=== PATIENT | male | born 1970 | race African-American/Black ===

== ENCOUNTER 2018-06-03 13:43 | Inpatient (IN) | payer OTHER ==
[2018-06-03 15:36] VITALS: BMI 25.1
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
[2018-06-03] MEDS ORDERED: ACETAMINOPHEN 325 MG TABLET (FP) PO PRN (17:13)
[2018-06-03] MEDS ORDERED: guaiFENesin/D-METHORPHAN HB 10 ML UNIT-DOSE CUPS PO PRN (17:13)
[2018-06-03] MEDS ORDERED: MENTHOL/PHENOL 1 EACH UD MM PRN (17:13)
[2018-06-03] MEDS ORDERED: LOPERAMIDE HCL 2 MG CAPSULE PO PRN (17:13)
[2018-06-03] MEDS ORDERED: MAGNESIUM CITRATE 300 ML BOTTLE PO PRN (17:13)
[2018-06-03] MEDS ORDERED: hydrOXYzine PAMOATE 50 MG CAPSULE (FP) PO PRN (17:13)
[2018-06-03] MEDS ORDERED: P-EPHED 60MG/TRIPROLIDI 2.5MG TABLET PO PRN (17:13)
[2018-06-03] MEDS ORDERED: MAG HYDROX/AL HYDROX/SIMETH 30 ML UNIT-DOSE CUP PO PRN (17:13)
[2018-06-03] MEDS ORDERED: MAGNESIUM HYDROX 2400MG/30ML ORAL SUSPENSION 30 ML CUP PO PRN (17:13)
[2018-06-03] MEDS ORDERED: IBUPROFEN 400 MG TABLET (FP) PO PRN (17:13)
[2018-06-03] MEDS ORDERED: TUBERCULIN PPD 5 TU/0.1ML VIAL ID ONE (21:02)
[2018-06-03] MEDS: THIAMINE HCL 100 MG TABLET (FP) PO SCH (21:33)
[2018-06-03] MEDS: BUPRENORPHINE/NALOXONE 8 MG/2 MG FILM PACKET SL SCH (21:33)
[2018-06-03] MEDS: HYDROCORTISONE 1% TOPICAL CREAM 30 GM TUBE TP SCH (21:36)
[2018-06-03] MEDS ORDERED: MELATONIN 5 MG TABLETS PO PRN (22:00)
[2018-06-04] MEDS ORDERED: PATIENT'S OWN MEDICATION (NON-FORMULARY) (Elviteg/Cob/Emtri/Tenof Alafen 1 EACH) PO SCH (10:00)
[2018-06-04 10:28] LABS: HEMATOCRIT 38.7 % (35.4-49); HEMOGLOBIN 12.3 GM/dL (11.7-16.9); MCH 27.5 pg (25.7-33.7); MCHC 31.8 g/dl (32.0-35.9); MEAN CELL VOLUME 86.5 fl (80-96); MEAN PLT VOLUME 7.9 fl (7.5-11.1); PLATELET COUNT 202 K/MM3 (134-434); RBC 4.47 M/mm3 (4.00-5.60); RDW 14.5 % (11.9-15.9); WHITE BLOOD COUNT 7.5 K/mm3 (4.0-10.0)
[2018-06-04] MEDS: PRENATAL VITAMINS W/ FOLIC ACID TABLET (FP) PO SCH (10:39)
[2018-06-04] MEDS: RAMIPRIL 5 MG CAPSULE (FP) PO SCH (10:39)
[2018-06-04] MEDS: HYDROCORTISONE 1% TOPICAL CREAM 30 GM TUBE TP SCH ×2 (10:40→21:53)
[2018-06-04] MEDS: BUPRENORPHINE/NALOXONE 8 MG/2 MG FILM PACKET SL SCH ×2 (10:41→21:52)
[2018-06-04 16:10] LABS: ALBUMIN 3.5 g/dl (3.4-5.0); ALK PHOS 83 U/L (45-117); ANION GAP 7 MMOL/L (8-16); BILIRUBIN,TOTAL 0.3 mg/dL (0.2-1); BLOOD UREA NITROGEN 15 mg/dL (7-18); CALCIUM 8.6 mg/dL (8.5-10.1); CHLORIDE 103 mmol/L (98-107); CO2 28 mmol/L (21-32); CREATININE 1.2 mg/dL (0.55-1.3); GLUCOSE,RANDOM 88 mg/dL (74-106); POTASSIUM 3.9 mmol/L (3.5-5.1); SGOT/AST 23 U/L (15-37); SGPT/ALT 39 U/L (13-61); SODIUM 139 mmol/L (136-145)
--- NOTE | 2018-06-04 18:10 | HP ---
Psychiatrist Admission - Data Date of interview: 06/04/18 Admission source: [facility]. Referred by [facility] Identifying data: First admission to [facility] for this [place]-born male, mandated by [facility] for rehabilitation treatment addressing cocaine (crack), cannabis, opioid and alcohol dependence. Patient is single, a father of two, domiciled, unemployed and supported on [employer] benefits. Medical History: Remarkable for HIV infection (non-compliant with ART medications), bronchial asthma, hypertension, dyslipidemia, antecedent of treatment for syphilis + gonorrhea and a history of orthosurgery for injuries to right knee from a fall (2006). Psychiatric History: Patient admits to one psychiatric hospitalization at a facility in [place] (name not recalled) and he indicates that it was " related to alcohol intoxication ". Diagnosed with MDD. Prescribed seroquel 200 mg/hs. Mr Taylor states that he sees a psychiatrist at an outpatient program, [facility], [facility]. Non-adherent to medications. Denies history of suicide attempts. Currently on suboxone maintenance. Physical/Sexual Abuse/Trauma History: Patient denies. Additional Comment: Substance abuse profile. As follows (from current [facility] report ) : Smoking history: Current every day smoker. Have you smoked in the past 12 months: Yes. Aproximately how many cigarettes per day: 6. Hx Chewing Tobacco Use: No. Initiated information on smoking cessation: Yes. 'Breaking Loose' booklet given: 06/03/18. - Substance & Tx. History. Substance Use Type: Cocaine ($100/day). Hx Substance Use Treatment: Yes ([facility] several years ago). - Substances Abused. Marijuana/Hashish. Route: Smoking. Frequency: Daily. Amount used: 10 joints. Age of first use: 16. Date of Last Use: . Cocaine. Route: Smoking. Frequency: Daily. Amount used: $100. Age of first use: 34. Date of Last Use: 05/31/18. Urine Drug Screen Results: THC- Marijuana. Noted. Vital Signs: Vital Signs - 24 hr 06/04/18 06/04/18 06/04/18 00:30 03:30 06:50 Temperature 98.2 F Pulse Rate 78 Respiratory 18 18 18 Rate Blood Pressure 133/94 Allergies/Adverse Reactions: Allergies Allergy/AdvReac Type Severity Reaction Status Date / Time No Known Allergies Allergy Verified 06/03/18 16:15 - Substance Abuse/Tx History Hx Alcohol Use: Yes (since age 16) Hx Substance Use: Yes (alcohol, cannabis, nicotine, crack; on suboxone maintenance) Substance Use Type: Alcohol (consumes 2X6 packs of beer + 2 pints of rum/vodka on a daily basis), Cocaine (spends 200 dollars/day on crack since age 34 (had stopped for a while and escalated in recent months ), Marijuana (spends 50 dollars/day ; started at age 16) Hx Substance Use Treatment: Yes Mental Status Exam - Mental Status Exam Alert and Oriented to: Time, Place, Person Cognitive Function: Good Patient Appearance: Well Groomed Mood: Nervous, Hopeful Affect: Appropriate, Normal Range Patient Behavior: Fatigued, Appropriate, Cooperative Speech Pattern: Clear Voice Loudness: Normal Thought Process: Goal Oriented Thought Disorder: Not Present Hallucinations: Denies Suicidal Ideation: Denies Homicidal Ideation: Denies Insight/Judgement: Fair Sleep: Poorly, Difficulty falling asleep Appetite: Good Muscle strength/Tone: Normal Gait/Station: Normal Psychiatric Findings - Problem List ([place] 1, 2,3) (1) Opioid dependence on agonist therapy Current Visit: Yes Status: Acute (2) Cannabis use disorder, mild, abuse Current Visit: Yes Status: Acute (3) Cocaine use disorder Current Visit: Yes Status: Acute (4) Nicotine dependence Current Visit: Yes Status: Acute (5) Insomnia Current Visit: Yes Status: Acute - Initial Treatment Plan Initial Treatment Plan: Psychoeducation. Sleep hygiene. Supportive/group therapy. NA/AA meetings. Motivational sessions. Patient agrees to resume seroquel but ONLY at the " smallest dose possible ". Seroquel 25 mg po hs. Ordered at patient's request. Side effects/benefits discussed in session. Observation.
[2018-06-04] MEDS ORDERED: PT OWN MED DRAWER 7, Y5N ONE (19:24)
[2018-06-04 21:24] LABS: URINE APPEARANCE CLOUDY; URINE BILIRUBIN NEGATIVE (<2.0 mg/dL); URINE COLOR LTYELLOW; URINE GLUCOSE (UA) NEGATIVE (NEGATIVE); URINE KETONE NEGATIVE (NEGATIVE); URINE LEUK ESTERASE NEGATIVE (NEGATIVE); URINE NITRITE NEGATIVE (NEGATIVE); URINE PROTEIN NEGATIVE (NEGATIVE); URINE UROBILINOGEN NEGATIVE mg/dL (0.2-1.0)
[2018-06-04] MEDS: THIAMINE HCL 100 MG TABLET (FP) PO SCH (21:51)
[2018-06-04] MEDS: QUEtiapine FUMARATE 25 MG TABLET (FP) PO SCH (21:52)
[2018-06-05] MEDS ORDERED: PT OWN MED DRAWER 7, Y5N ONE (08:54)
[2018-06-05] MEDS: RAMIPRIL 5 MG CAPSULE (FP) PO SCH (09:45)
[2018-06-05] MEDS: BUPRENORPHINE/NALOXONE 8 MG/2 MG FILM PACKET SL SCH ×2 (09:45→21:29)
[2018-06-05] MEDS: PRENATAL VITAMINS W/ FOLIC ACID TABLET (FP) PO SCH (09:45)
[2018-06-05] MEDS: HYDROCORTISONE 1% TOPICAL CREAM 30 GM TUBE TP SCH ×2 (09:45→21:27)
[2018-06-05] MEDS: NICOTINE POLACRILEX 4 MG GUM BC PRN ×2 (11:46→13:44)
[2018-06-05] MEDS: QUEtiapine FUMARATE 25 MG TABLET (FP) PO SCH (21:27)
[2018-06-05] MEDS: THIAMINE HCL 100 MG TABLET (FP) PO SCH (21:27)
[2018-06-06] MEDS: RAMIPRIL 5 MG CAPSULE (FP) PO SCH (09:46)
[2018-06-06] MEDS: BUPRENORPHINE/NALOXONE 8 MG/2 MG FILM PACKET SL SCH ×2 (09:46→21:22)
[2018-06-06] MEDS: PRENATAL VITAMINS W/ FOLIC ACID TABLET (FP) PO SCH (09:46)
[2018-06-06] MEDS: HYDROCORTISONE 1% TOPICAL CREAM 30 GM TUBE TP SCH ×3 (09:47→23:14)
[2018-06-06] MEDS: NICOTINE POLACRILEX 4 MG GUM BC PRN (13:53)
[2018-06-06] MEDS: THIAMINE HCL 100 MG TABLET (FP) PO SCH (21:22)
[2018-06-06] MEDS: QUEtiapine FUMARATE 25 MG TABLET (FP) PO SCH (21:22)
[2018-06-06] MEDS ORDERED: PT OWN MED DRAWER 7, Y5N ONE (23:14)
[2018-06-07] MEDS ORDERED: PT OWN MED DRAWER 7, Y5N ONE ×4 (09:15→22:09)
[2018-06-07] MEDS: RAMIPRIL 5 MG CAPSULE (FP) PO SCH (10:34)
[2018-06-07] MEDS: PRENATAL VITAMINS W/ FOLIC ACID TABLET (FP) PO SCH (10:34)
[2018-06-07] MEDS: BUPRENORPHINE/NALOXONE 8 MG/2 MG FILM PACKET SL SCH ×2 (10:36→21:49)
[2018-06-07] MEDS: HYDROCORTISONE 1% TOPICAL CREAM 30 GM TUBE TP SCH ×2 (10:36→21:50)
[2018-06-07] MEDS: THIAMINE HCL 100 MG TABLET (FP) PO SCH (21:49)
[2018-06-07] MEDS: QUEtiapine FUMARATE 25 MG TABLET (FP) PO SCH (21:49)
[2018-06-08] MEDS: HYDROCORTISONE 1% TOPICAL CREAM 30 GM TUBE TP SCH ×2 (09:47→21:20)
[2018-06-08] MEDS: RAMIPRIL 5 MG CAPSULE (FP) PO SCH (09:47)
[2018-06-08] MEDS: BUPRENORPHINE/NALOXONE 8 MG/2 MG FILM PACKET SL SCH ×2 (09:47→21:18)
[2018-06-08] MEDS: PRENATAL VITAMINS W/ FOLIC ACID TABLET (FP) PO SCH (09:47)
[2018-06-08] MEDS: NICOTINE POLACRILEX 4 MG GUM BC PRN (14:47)
[2018-06-08] MEDS: THIAMINE HCL 100 MG TABLET (FP) PO SCH (21:18)
[2018-06-08] MEDS: QUEtiapine FUMARATE 25 MG TABLET (FP) PO SCH (21:18)
[2018-06-09] MEDS: RAMIPRIL 5 MG CAPSULE (FP) PO SCH (10:05)
[2018-06-09] MEDS: PRENATAL VITAMINS W/ FOLIC ACID TABLET (FP) PO SCH (10:05)
[2018-06-09] MEDS: BUPRENORPHINE/NALOXONE 8 MG/2 MG FILM PACKET SL SCH ×2 (10:05→21:11)
[2018-06-09] MEDS: NICOTINE POLACRILEX 4 MG GUM BC PRN ×2 (10:06→21:29)
[2018-06-09] MEDS: HYDROCORTISONE 1% TOPICAL CREAM 30 GM TUBE TP SCH ×2 (10:06→21:13)
[2018-06-09] MEDS: THIAMINE HCL 100 MG TABLET (FP) PO SCH (21:11)
[2018-06-09] MEDS: QUEtiapine FUMARATE 25 MG TABLET (FP) PO SCH (21:11)
[2018-06-10] MEDS: RAMIPRIL 5 MG CAPSULE (FP) PO SCH (10:09)
[2018-06-10] MEDS: PRENATAL VITAMINS W/ FOLIC ACID TABLET (FP) PO SCH (10:09)
[2018-06-10] MEDS: HYDROCORTISONE 1% TOPICAL CREAM 30 GM TUBE TP SCH ×2 (10:09→22:13)
[2018-06-10] MEDS: NICOTINE POLACRILEX 4 MG GUM BC PRN ×2 (10:10→21:30)
[2018-06-10] MEDS ORDERED: BUPRENORPHINE/NALOXONE 8 MG/2 MG FILM PACKET SL ONE (10:25)
[2018-06-10] MEDS ORDERED: COLLOIDAL OATMEAL 1 BAR EACH TP PRN (19:31)
[2018-06-10] MEDS: THIAMINE HCL 100 MG TABLET (FP) PO SCH (21:29)
[2018-06-10] MEDS: BUPRENORPHINE/NALOXONE 8 MG/2 MG FILM PACKET SL SCH (21:29)
[2018-06-10] MEDS: QUEtiapine FUMARATE 25 MG TABLET (FP) PO SCH (21:30)
[2018-06-11] MEDS ORDERED: PT OWN MED DRAWER 7, Y5N ONE (08:44)
[2018-06-11] MEDS: NICOTINE POLACRILEX 4 MG GUM BC PRN ×2 (08:44→19:10)
[2018-06-11] MEDS: RAMIPRIL 5 MG CAPSULE (FP) PO SCH (10:06)
[2018-06-11] MEDS: BUPRENORPHINE/NALOXONE 8 MG/2 MG FILM PACKET SL SCH ×2 (10:06→21:45)
[2018-06-11] MEDS: PRENATAL VITAMINS W/ FOLIC ACID TABLET (FP) PO SCH (10:06)
[2018-06-11] MEDS: HYDROCORTISONE 1% TOPICAL CREAM 30 GM TUBE TP SCH ×2 (10:07→21:47)
--- NOTE | 2018-06-11 13:47 | PN ---
[facility] Progress Note Note: Requesting dry skin lotion. Also pt requesting HIV meds- but has not taken meds in several weeks.
[2018-06-11] MEDS ORDERED: AMMONIUM LACTATE 12% LOTION 225 GM BOTTLE TP PRN (13:49)
[2018-06-11] MEDS: QUEtiapine FUMARATE 25 MG TABLET (FP) PO SCH (21:45)
[2018-06-11] MEDS: THIAMINE HCL 100 MG TABLET (FP) PO SCH (21:45)
[2018-06-12] MEDS: RAMIPRIL 5 MG CAPSULE (FP) PO SCH (10:00)
[2018-06-12] MEDS: HYDROCORTISONE 1% TOPICAL CREAM 30 GM TUBE TP SCH ×2 (10:00→21:36)
[2018-06-12] MEDS: PRENATAL VITAMINS W/ FOLIC ACID TABLET (FP) PO SCH (10:00)
[2018-06-12] MEDS: BUPRENORPHINE/NALOXONE 8 MG/2 MG FILM PACKET SL SCH ×2 (10:00→21:36)
[2018-06-12] MEDS: NICOTINE POLACRILEX 4 MG GUM BC PRN ×3 (10:02→21:38)
[2018-06-12] MEDS: THIAMINE HCL 100 MG TABLET (FP) PO SCH (21:36)
[2018-06-12] MEDS: QUEtiapine FUMARATE 25 MG TABLET (FP) PO SCH (21:36)
[2018-06-13] MEDS: BUPRENORPHINE/NALOXONE 8 MG/2 MG FILM PACKET SL SCH ×2 (10:02→21:39)
[2018-06-13] MEDS: PRENATAL VITAMINS W/ FOLIC ACID TABLET (FP) PO SCH (10:02)
[2018-06-13] MEDS: RAMIPRIL 5 MG CAPSULE (FP) PO SCH (10:02)
[2018-06-13] MEDS: NICOTINE POLACRILEX 4 MG GUM BC PRN ×3 (10:02→21:39)
[2018-06-13] MEDS: HYDROCORTISONE 1% TOPICAL CREAM 30 GM TUBE TP SCH ×2 (10:02→21:40)
[2018-06-13] MEDS: THIAMINE HCL 100 MG TABLET (FP) PO SCH (21:39)
[2018-06-13] MEDS: QUEtiapine FUMARATE 25 MG TABLET (FP) PO SCH (21:39)
[2018-06-13] MEDS ORDERED: PT OWN MED DRAWER 7, Y5N ONE (22:19)
[2018-06-14 06:57] VITALS: TEMP 97.5
[2018-06-14] MEDS: BUPRENORPHINE/NALOXONE 8 MG/2 MG FILM PACKET SL SCH (09:51)
[2018-06-14] MEDS: PRENATAL VITAMINS W/ FOLIC ACID TABLET (FP) PO SCH (09:51)
[2018-06-14] MEDS: RAMIPRIL 5 MG CAPSULE (FP) PO SCH (09:51)
[2018-06-14] MEDS: NICOTINE POLACRILEX 4 MG GUM BC PRN ×2 (09:52→16:40)
[2018-06-14] MEDS: HYDROCORTISONE 1% TOPICAL CREAM 30 GM TUBE TP SCH (09:52)
[2018-06-14 09:58] VITALS: BP 127/73; PULSE 75
--- NOTE | 2018-06-14 17:58 | PN ---
[facility] Progress Note Note: Patient completed this program today.He has met his treatment goals and will continue to address his issues on outpatient basis.
== END 2018-06-14 19:25 | disposition home or self-care (01) | DRG 772 ==
LOC: YASAS 13:43 → Y3W 16:50
PROVIDERS: ADMIT Psychiatry & Neurology Psychiatry; ATTEND Psychiatry & Neurology Psychiatry
PROC: HZ42ZZZ Group Counseling for Substance Abuse Treatment, Cognitive-Behavioral (ICD-10-PCS; principal; 2018-06-03)
DX: F14.10 Cocaine abuse, uncomplicated (principal); F12.10 Cannabis abuse, uncomplicated; F11.20 Opioid dependence, uncomplicated; F17.210 Nicotine dependence, cigarettes, uncomplicated; Z21 Asymptomatic human immunodeficiency virus [HIV] infection status; I10 Essential (primary) hypertension; E78.00 Pure hypercholesterolemia, unspecified; J45.909 Unspecified asthma, uncomplicated; L30.9 Dermatitis, unspecified; R01.1 Cardiac murmur, unspecified; Z86.19 Personal history of other infectious and parasitic diseases
CPT/HCPCS: 36415; 80053; 81003; 81015; 85027; 86593